=== PATIENT | male | born 1975 | race Caucasian/White ===

== ENCOUNTER 2021-01-24 16:58 | Outpatient (REF) | payer BC, MEDICAID, SELFPAY ==
--- NOTE | ~2021-01-24 | XR_ITS ---
EXAMINATION: XR HAND, RIGHT CLINICAL INFORMATION: Indeterminate injury to the right wrist. COMPARISON: None. TECHNIQUE: PA, lateral, and oblique views of the right hand. FINDINGS: No evidence of acute fractures or malalignment. 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 Mild diffuse soft tissue edema. No unexpected radiopaque foreign bodies. XR/XR hand RT min 3V IMPRESSION: No acute fractures or malalignment.
== END 2021-01-24 16:59 | disposition home or self-care (01) ==
LOC: HO.HMGCX 16:58
PROVIDERS: PCP Family Medicine; Visit Provider Physician Assistant Medical
DX: S69.91XD Unspecified injury of right wrist, hand and finger(s), subsequent encounter (principal)
CPT/HCPCS: 73130